=== PATIENT | female | born 1960 | race Caucasian/White ===

== ENCOUNTER 2019-02-08 21:08 | Emergency (ER) | payer OTHER ==
[~2019-02-08] VITALS: Ht 167.6 cm; Wt 78.5 kg
--- NOTE | 2019-02-08 21:40 | NUR ---
ED Nurse Note: RECIEVED PT ON [place] FROM HOME, AWAKE, ALERT AND ORIENTED X 4, PT HERE WITH C/O RIGHT EAR AND NECK PAIN X 2 DAYS, PT WAS RECENTLY TREATED FOR EAR INFECTION 1 MONTH AGO, PT DENIES CP, SOB, FEVERS, OR ANY OTHER COMPLAINTS OR DISCOMFORTS, PT GOWNED AND PLACED ON CARDIAC MONITORING, PT ALSOHAS DIZZINESS AND VERY UN-STEADY GAIT WHEN WALKING, PT SHIFTS TO LEFT WHEN AMBULATING, PT HAS CANE.
[2019-02-08 22:06] LABS: HEMATOCRIT 38.4 % (37.0-47.0); HEMOGLOBIN 12.8 G/DL (12.0-16.0); MEAN CORPUSCULAR VOLUME 83 FL (80-99); PLATELET COUNT 91 K/UL (150-450); RED BLOOD COUNT 4.64 M/UL (4.20-5.40); RED CELL DISTRIBUTION WIDTH 12.3 % (11.6-14.8); WHITE BLOOD COUNT 6.2 K/UL (4.8-10.8)
[2019-02-08 22:07] LABS: ANION GAP 8 mmol/L (5-15); BLOOD UREA NITROGEN 16 mg/dL (7-18); CALCIUM 9.1 MG/DL (8.5-10.1); CARBON DIOXIDE 27 MMOL/L (21-32); CHLORIDE 104 MMOL/L (98-107); CREATININE 0.7 MG/DL (0.55-1.30); POTASSIUM 4.1 MMOL/L (3.5-5.1); SODIUM 139 MMOL/L (136-145)
[2019-02-08] MEDS: Ketorolac 30mg Inj IV ONE (22:11)
[2019-02-08 23:00] VITALS: BP 141/69
--- NOTE | 2019-02-08 23:00 | NUR ---
ED Nurse Note: PT CONTINUES TO REST IN BED, MEDS GIVEN FOR PAIN NOT EFFECTIVE PER PT, MD INFORMED NO ORDERS GIVEN, PT REMAINS ON CARDIAC MONITORING, V/S STABLE, WILL CONTINUE TO CLOSELY MONITOR.
[2019-02-08] MEDS ORDERED: AMOXICILLIN500 MG ORAL (23:16)
[2019-02-08] MEDS ORDERED: IBUPROFEN600 MG ORAL (23:16)
--- NOTE | 2019-02-08 23:17 | Emergency Room Report ---
History of Present Illness General Chief Complaint: Dizziness Source: Patient Present Illness HPI This is a 58-year-old female with history of hypertension. She presents with chief complaint of headache and throat pain. Onset for last 2 days. Pain is to the right side of the head and neck. She also has some swelling. Worse with swallowing. Better with rest. No fever chills but no nausea no vomiting. No drooling. Pain is 9 out of 10. Throbbing in nature. Denies any other complaint. Allergies: Coded Allergies: No Known Allergies (Unverified , 02/08/19) Patient History Past Medical History: see triage record, old chart reviewed, HTN Past Surgical History: none Pertinent Family History: none Social History: Denies: smoking Now: No Immunizations: other Reviewed Nursing Documentation: PMH: Agreed; PSxH: Agreed Nursing Documentation-PMH Past Medical History: No History, Except For Hx Hypertension: Yes Review of Systems Eye: Denies: eye pain, blurred vision ENT: Reports: throat pain; Denies: ear pain, nose congestion, throat swelling Respiratory: Denies: cough, shortness of breath Cardiovascular: Denies: chest pain, palpitations Gastrointestinal: Denies: abdominal pain, diarrhea, nausea, vomiting Musculoskeletal: Denies: back pain, joint pain Skin: Denies: rash Neurological: Reports: headache; Denies: numbness Endocrine: Denies: increased thirst, increased urine Hematologic/Lymphatic: Denies: easy bruising All Other Systems: negative except mentioned in HPI Physical Exam Vital Signs Date Time Temp Pulse Resp B/P (MAP) Pulse Ox O2 Delivery O2 Flow Rate FiO2 02/08/19 21:18 98.8 69 12 132/66 95 Room Air vitals normal Sp02 EP Interpretation: reviewed, normal General Appearance: well appearing, no apparent distress, alert Head: normocephalic, atraumatic Eyes: bilateral eye PERRL, bilateral eye EOMI ENT: hearing grossly normal, pharyngeal erythema Neck: full range of motion, supple, no meningismus, tender - Tender right cervical adenopathy Respiratory: chest non-tender, lungs clear, normal breath sounds Cardiovascular #1: regular rate, rhythm, no murmur Gastrointestinal: normal bowel sounds, non tender, no mass, no organomegaly, no bruit, non-distended Musculoskeletal: back normal, gait/station normal, normal range of motion Psychiatric: mood/affect normal Skin: warm/dry Medical Decision Making Diagnostic Impression: Primary Impression: Headache Qualified Codes: R51 - Headache Additional Impressions: Dizziness of unknown cause Acute tonsillitis Qualified Codes: J03.90 - Acute tonsillitis, unspecified Thrombocytopenia ER Course Is with headache and dizziness. Also with throat pain. This is probably secondary to acute tonsillitis. No evidence of meningitis, bleed or neoplastic process. No evidence of peritonsillar abscess, retropharyngeal abscess or Gustavo angina. Labs unremarkable. We'll discharge home. CT/MRI/US Diagnostic Results CT/MRI/US Diagnostic Results : Imaging Test Ordered: CT head Impression negative per radiologist Last Vital Signs Date Time Temp Pulse Resp B/P (MAP) Pulse Ox O2 Delivery O2 Flow Rate FiO2 02/08/19 21:18 98.8 69 12 132/66 95 Room Air Status: improved Disposition: HOME, SELF-CARE Condition: Stable Scripts Ibuprofen* (MOTRIN*) 600 Mg Tablet 600 MG ORAL THREE TIMES A DAY, #30 TAB 0 Refills Prov: Manuelito Schulte MD 02/08/19 Amoxicillin* (AMOXIL*) 500 Mg Capsule 500 MG ORAL THREE TIMES A DAY, #21 CAP Prov: Manuelito Schulte MD 02/08/19 Referrals: [facility],REFERRING (PCP) Additional Instructions: Follow-up with your in 3-5 days. Return if symptom worsen. Manuelito Schulte MD Feb 08, 2019 23:17
[2019-02-09] VITALS: BP 144/71
--- NOTE | 2019-02-09 | NUR ---
ER DISCHARGE NOTE: Patient is cleared to be discharged per ERMD, pt is aox4, on room air, with stable vital signs. pt was given dc and prescription instructions, pt was able to verbalize understanding, pt id band and iv site removed without complications. pt is able to ambulate with steady gait. pt took all belongings.Family member arrived for pt transport.
--- NOTE | 2019-02-09 09:52 | Diagnostic Imaging Report ---
Indication: Dizziness, ear pain Technique: Continuous helical CT scanning of the head was performed utilizing automated exposure control without intravenous contrast material. Axial and coronal reconstructions were obtained. Comparison: None CT dose: Total DLP 1407.76 mGycm; CTDI vol 70.38 mGy Findings: There is no acute intracranial hemorrhage, mass effect or cortical edema. There is no shift of midline structures The ventricles, cisterns and sulci are within normal limits for age. Mastoid air cells are clear. There is partial opacification of a left-sided ethmoid air cell. No focal lesions of the bony calvarium or soft tissues of the scalp are seen. Impression: No evidence of acute intracranial hemorrhage, mass effect or cortical edema. MRI may be obtained for more sensitive evaluation as clinically indicated. The CT scanner at [facility] is accredited by the [employer] and the scans are performed using protocols designed to limit radiation exposure to as low as reasonably achievable to attain images of sufficient resolution adequate for diagnostic evaluation.
== END 2019-02-09 00:05 | disposition home or self-care (01) ==
LOC: EMR 21:41
DX: R51 Headache (principal); R42 Dizziness and giddiness; J03.90 Acute tonsillitis, unspecified; D69.6 Thrombocytopenia, unspecified; I10 Essential (primary) hypertension
CPT/HCPCS: 36415; 70450; 80048; 85007; 85025; 96361; 96374; 99284; J1885